=== PATIENT | female | born 1955 | race Caucasian/White ===

== ENCOUNTER → 2017-10-02 10:55 | Outpatient (CLI) | payer OTHER, SELFPAY ==
[2017-10-02 12:00] LABS: Add Manual Diff / Slide Review NO; Basophils Percent Auto 1.4 % (0-2); Hematocrit 39.8 % (36-46); Hemoglobin 13.3 g/dL (12.0-16.0); Mean Corpuscular HGB Conc 33.3 % (30-36); Mean Corpuscular Hemoglobin 29.5 PG (26-34); Mean Corpuscular Volume 88.5 fL (80-100); Monocytes Percent Auto 6.9 % (3-14); Neutrophils Absolute Auto 4400 /uL (3000-5900); Neutrophils Percent Auto 49.7 % (50-75); Platelet Count 328 X10^3/uL (150-400); Red Cell Distribution Width 12.7 % (11.6-14.8); White Blood Cell Count 8.8 X10^3/uL (4.5-11.0)
[2017-10-02 12:17] LABS: Hemoglobin A1C% w Est Avg Glu 6.5 % (4.0-6.0)
[2017-10-02 12:49] LABS: TSH w/ Reflex to FT4 0.72 uIU/mL (0.47-4.68)
== END ==
PROVIDERS: PCP Family Medicine; Visit Provider Family Medicine
DX: E03.9 Hypothyroidism, unspecified (principal); E11.9 Type 2 diabetes mellitus without complications; G47.00 Insomnia, unspecified
CPT/HCPCS: 36415; 83036; 84443; 85025

== ENCOUNTER 2017-12-01 12:10 | Emergency (ER) | payer OTHER, SELFPAY ==
[2017-12-01 12:15] VITALS: BP 172/83; PULSE 80; RESP 13; TEMP 36.5; O2SAT 98
--- NOTE | 2017-12-01 12:46 | ED_ITS ---
HPI - Head Injury <SONIYA Chen - Last Filed: 12/01/17 22:08> General Chief complaint: Hypertension Stated complaint: VERTIGO AND HIGH BP, FELL AND HIT HEAD Time Seen by Provider: 12/01/17 12:41 Source: patient Mode of arrival: ambulatory Limitations: no limitations History of Present Illness HPI Narrative: 62-year-old female with history of high blood pressure nonsmoker here for complaint of having a dizziness/vertigo over the past couple of days. She states that she was seen in emergency room in [facility] as she was traveling from [place] back home. They did a significant workup on her and a with no acute findings. There was discussion as far as meningitis as her dad of meningitis. Not believed to be bacterial. She refused to have a lumbar puncture. She was told to follow up with her primary care provider. She tried to see her primary care provider today and was unable to. She states that due to the dizziness she had and fall last night which she states she hit her head. She denies any loss of consciousness. No nausea or vomiting. She was prescribed meclizine and states that this has helped her dizziness. She denies any fevers or chills. Related Data Home Medications Medication Instructions Recorded Confirmed aspirin 81 mg PO QDAY #0 10/14/16 10/02/17 advair hfa INHALATION BID 09/11/17 10/02/17 Previous Rx's Medication Instructions Recorded albuterol sulfate 3 ml INH Q4H PRN #6 box 03/13/16 albuterol sulfate [Ventolin HFA] 2 puff INH Q4HP PRN #2 inh 09/16/16 esomeprazole magnesium [Nexium] 40 mg PO QDAY #90 cap 12/30/16 diclofenac sodium 1 tavo TP BID #30 gm 02/10/17 cetirizine 10 mg PO QDAY #90 tab 07/16/17 citalopram 40 mg PO Q DAY #90 tab 07/16/17 losartan 50 mg PO QDAY #90 tab 07/16/17 metformin [Glucophage XR] 750 mg PO BIDCC #180 tab 07/16/17 montelukast 10 mg tablet 10 mg PO DAILY #90 tab 09/18/17 azelastine 137 mcg (0.1 %) nasal 1 spray NASAL BID #30 ml 09/24/17 spray aerosol estradiol 1 mg tablet 1 mg PO QDAY #90 tab 10/02/17 levothyroxine 125 mcg tablet 125 mcg PO QAM #90 tab 10/02/17 medroxyprogesterone 2.5 mg tablet 2.5 mg PO QDAY #90 tab 10/02/17 diazepam 5 mg tablet 5 mg PO BEDTIME PRN #30 tab 11/06/17 zolpidem 10 mg tablet 10 mg PO BEDTIME PRN #15 tab 11/06/17 ondansetron HCl [Zofran] 4 mg PO Q6-8H PRN #10 tab 12/01/17 Allergies Allergy/AdvReac Type Severity Reaction Status Date / Time birch [BIRCH] Allergy Intermediate Verified 10/02/17 09:47 grass pollen-perennial rye, Allergy Intermediate Verified 10/02/17 09:47 standar [GRASS POLLEN-PERENNIAL RYE,STD] hazelnut [HAZELNUT] Allergy Intermediate Verified 10/02/17 09:47 oak [OAK] Allergy Intermediate Verified 10/02/17 09:47 ragweed pollen Allergy Intermediate Verified 10/02/17 09:47 [RAGWEED POLLEN] latex [LATEX] Allergy Unknown Verified 10/02/17 09:47 Sulfa (Sulfonamide AdvReac Mild NAUSEA AND Verified 10/02/17 09:47 Antibiotics) VOMITING [SULFA (SULFONAMIDE ANTIBIOTICS)] ENVIRONMENTAL ALLERGIES AdvReac Mild COUGHING, Uncoded 10/02/17 09:47 WHEEZING, DISCHARGE, ETC. Review of Systems <SONIYA Chen - Last Filed: 12/01/17 22:08> Constitutional Denies chills, Denies fever(s), Reports headache(s), Denies lethargy and Denies weakness Eyes Denies change in vision, Denies eye discharge, Denies irritation and Denies loss of vision ENT Ears, Nose, Mouth, and Throat: Reports dizziness and Reports headache(s) Cardiovascular Denies chest pain, Denies irregular heart rhythm, Denies lightheadedness, Denies palpitations, Denies dyspnea, Denies dyspnea on exertion and Denies orthopnea Respiratory Denies cough, Denies dyspnea, Denies dyspnea on exertion and Denies wheezing Gastrointestinal Gastrointestinal: Denies abdominal pain, Denies change in bowel habits, Denies diarrhea, Denies nausea and Denies vomiting Genitourinary Denies hematuria, Denies flank pain, Denies urinary incontinence and Denies urinary urgency Musculoskeletal Denies back pain, Denies muscle weakness, Denies numbness and Denies tingling Integumentary/Breasts Denies pruritus, Denies erythema, Denies rash and Denies wounds Neurologic Denies confusion, Reports dizziness, Reports headache(s), Denies loss of vision , Denies numbness, Denies tingling and Denies weakness Psychiatric Denies anxiety, Denies confusion, Denies depression, Denies homicidal ideation and Denies suicidal ideation Endocrine Denies palpitations Allergic/Immunologic Denies wheezing Exam <SONIYA Chen - Last Filed: 12/01/17 22:08> Initial Vital Signs Initial Vital Signs: Vital Signs Temperature 97.7 F 12/01/17 12:15 Pulse Rate 80 12/01/17 12:15 Respiratory Rate 13 12/01/17 12:15 Blood Pressure 172/83 H 12/01/17 12:15 Pulse Oximetry 98 12/01/17 12:15 Const General: cooperative and well developed Nutritional Appearance: well nourished Orientation: alert, awake, oriented x3 and not confused HENHI Mouth: oral mucosae normal and moist mucous membranes Eyes Conjunctivae: conjunctivae normal Sclera: sclerae normal Pupils: PERRL EOM: EOM intact bilaterally Resp Effort & Inspection: normal respiratory effort, able to speak in complete sentences, no respiratory distress and no use of accessory muscles Auscultation: clear to auscultation bilaterally, no rales, no rhonchi and no wheezes Cardio Rate: regular rate Rhythm: regular rhythm Heart Sounds: no click, no gallops, no murmurs and no rubs Pulses: normal peripheral pulses Skin General: no rashes or lesions noted, No jaundice and No petechiae Neuro General: alert, awake, oriented x3, gait normal, moves all extremities, normal light touch, pain and propioception, no focal motor deficits and CN's II-XI intact bilaterally Speech: speech normal Gait: normal gait Motor: muscle tone normal throughout Sensory Exam: no sensory deficits noted Extrem General: full ROM, no clubbing, cyanosis or edema, no pedal edema and no calf tenderness Other: Right upper extremity with no signs of trauma. No ecchymosis. No swelling. Full range of motion. Distal CMS is intact. <Joanne Dooley DO - Last Filed: 12/02/17 11:23> Initial Vital Signs Initial Vital Signs: Vital Signs Temperature 97.7 F 12/01/17 12:15 Pulse Rate 80 12/01/17 12:15 Respiratory Rate 13 12/01/17 12:15 Blood Pressure 172/83 H 12/01/17 12:15 Pulse Oximetry 98 12/01/17 12:15 Scores <SONIYA Chen - Last Filed: 12/01/17 22:08> ABCD2 Age >= 60 years: yes Initial BP. Either SBP >= 140 or DBP >= 90.: yes Clinical features of the TIA: other symptoms Duration of symptoms: >= 60 minutes History of diabetes: yes ABCD2 Score: 5 Course <SONIYA Chen - Last Filed: 12/01/17 22:08> Orders Ordered: Discontinued Medications Sodium Chloride (Normal Saline 0.9%) 1,000 mls @ 150 mls/hr IV CONT EVAN Last Infusion: 12/01/17 17:58 Dose: 0 mls/hr Admin: 12/01/17 13:44 Dose: 150 mls/hr Lorazepam (Ativan) 0.5 mg IV NOW ONE Stop: 12/01/17 15:30 Last Admin: 12/01/17 15:39 Dose: Not Given Lorazepam (Ativan) 1 mg IV NOW ONE Stop: 12/01/17 15:32 Last Admin: 12/01/17 15:38 Dose: 1 mg Vital Signs - 8 hr 12/01/17 14:41 12/01/17 15:24 12/01/17 17:48 Pulse Rate 71 68 70 Pulse Rate [Orthostatic Lying] 71 Pulse Rate [Orthostatic Sitting] 65 Pulse Rate [Orthostatic Standing] 73 Respiratory Rate 16 16 16 Blood Pressure [Left Arm] 176/85 H 175/97 H 158/93 H Blood Pressure [Orthostatic Lying] 176/85 H Blood Pressure [Orthostatic Sitting] 171/84 H Blood Pressure [Orthostatic Standing] 169/89 H Pulse Oximetry 96 98 97 <Joanne Dooley DO - Last Filed: 12/02/17 11:23> Orders Ordered: Discontinued Medications Sodium Chloride (Normal Saline 0.9%) 1,000 mls @ 150 mls/hr IV CONT EVAN Last Infusion: 12/01/17 17:58 Dose: 0 mls/hr Admin: 12/01/17 13:44 Dose: 150 mls/hr Lorazepam (Ativan) 0.5 mg IV NOW ONE Stop: 12/01/17 15:30 Last Admin: 12/01/17 15:39 Dose: Not Given Lorazepam (Ativan) 1 mg IV NOW ONE Stop: 12/01/17 15:32 Last Admin: 12/01/17 15:38 Dose: 1 mg Vital Signs - 8 hr 12/01/17 14:41 12/01/17 15:24 12/01/17 17:48 Pulse Rate 71 68 70 Pulse Rate [Orthostatic Lying] 71 Pulse Rate [Orthostatic Sitting] 65 Pulse Rate [Orthostatic Standing] 73 Respiratory Rate 16 16 16 Blood Pressure [Left Arm] 176/85 H 175/97 H 158/93 H Blood Pressure [Orthostatic Lying] 176/85 H Blood Pressure [Orthostatic Sitting] 171/84 H Blood Pressure [Orthostatic Standing] 169/89 H Pulse Oximetry 96 98 97 MDM - Head Injury <SONIYA Chen - Last Filed: 12/01/17 22:08> Lab Data Result diagrams: 12/01/17 13:30 12/01/17 13:30 Lab Results 12/01/17 12/01/17 12/01/17 Range/Units 13:30 13:30 13:30 WBC 9.4 (4.5-11.0) X10^3/uL RBC 4.42 (4.0-5.2) X10^6/uL Hgb 12.9 (12.0-16.0) g/dL Hct 38.3 (36-46) % MCV 86.7 (80-100) fL MCH 29.3 (26-34) PG MCHC 33.8 (30-36) % RDW 12.7 (11.6-14.8) % Plt Count 317 (150-400) X10^3/uL Neut % (Auto) 50.6 (50-75) % Lymph % (Auto) 38.1 (25-40) % Gillespie % (Auto) 6.1 (3-14) % Eos % (Auto) 3.8 (2-4) % Baso % (Auto) 1.4 (0-2) % Neut # (Auto) 4700 (2802-1895) /uL PT 12.5 (10.1-12.7) SECONDS INR 1.2 (0.9-1.3) Sodium 144 (137-145) mmol/L Potassium 4.2 (3.4-5.1) mmol/L Chloride 106 (98-107) mmol/L Carbon Dioxide 26 (22-32) mmol/L BUN 11 (7-17) mg/dL Creatinine 0.70 (0.52-1.04) mg/dL Estimated GFR > 60.0 (>60) mL/min BUN/Creatinine Ratio 15.7 (6-22) Glucose 94 (80-110) mg/dL Lactate (0.7-2.1) mmol/L Calcium 10.0 (8.4-10.2) mg/dL Troponin I < 0.012 (0.01-0.034) ng/mL TSH (0.47-4.68) uIU/mL Urine Opiates Screen (Negative) Ur Oxycodone Screen (Negative) Urine Methadone Screen (Negative) Ur Barbiturates Screen (Negative) U Tricyclic Antidepress (Negative) Ur Phencyclidine Scrn (Negative) Ur Amphetamines Screen (Negative) U Methamphetamines Scrn (Negative) Ur MDMA Scrn (Ecstasy) (Negative) U Benzodiazepines Scrn (Negative) Urine Cocaine Screen (Negative) U Marijuana (THC) Screen (Negative) 12/01/17 12/01/17 12/01/17 Range/Units 13:30 13:47 Unknown WBC (4.5-11.0) X10^3/uL RBC (4.0-5.2) X10^6/uL Hgb (12.0-16.0) g/dL Hct (36-46) % MCV (80-100) fL MCH (26-34) PG MCHC (30-36) % RDW (11.6-14.8) % Plt Count (150-400) X10^3/uL Neut % (Auto) (50-75) % Lymph % (Auto) (25-40) % Gillespie % (Auto) (3-14) % Eos % (Auto) (2-4) % Baso % (Auto) (0-2) % Neut # (Auto) (7412-5794) /uL PT (10.1-12.7) SECONDS INR (0.9-1.3) Sodium (137-145) mmol/L Potassium (3.4-5.1) mmol/L Chloride (98-107) mmol/L Carbon Dioxide (22-32) mmol/L BUN (7-17) mg/dL Creatinine (0.52-1.04) mg/dL Estimated GFR (>60) mL/min BUN/Creatinine Ratio (6-22) Glucose (80-110) mg/dL Lactate 2.4 H (0.7-2.1) mmol/L Calcium (8.4-10.2) mg/dL Troponin I (0.01-0.034) ng/mL TSH 2.70 (0.47-4.68) uIU/mL Urine Opiates Screen Negative (Negative) Ur Oxycodone Screen Negative (Negative) Urine Methadone Screen Negative (Negative) Ur Barbiturates Screen Negative (Negative) U Tricyclic Antidepress Negative (Negative) Ur Phencyclidine Scrn Negative (Negative) Ur Amphetamines Screen Negative (Negative) U Methamphetamines Scrn Negative (Negative) Ur MDMA Scrn (Ecstasy) Negative (Negative) U Benzodiazepines Scrn Positive H (Negative) Urine Cocaine Screen Negative (Negative) U Marijuana (THC) Screen Negative (Negative) Imaging Data MRI - head: Radiologist's impression: [place] [address] Magnetic Resonance Report Signed Patient: Kenya Handy MR#: [id number] : 1955 Acct:[id number] Age/Sex: 62 / F Date of Service: 12/01/17 Loc: ED Accession Number: [id number] Procedure: MR head/brain wo con Ordering Provider: Price Joyce PROCEDURE: MR HEAD/BRAIN WO CON INDICATIONS: Headache and dizziness TECHNIQUE: Non-contrast axial T1 spin echo, axial T2 fast spin echo, sagittal and axial FLAIR, coronal T2 fast spin echo, axial gradient echo, axial diffusion and ADC through the brain. COMPARISON: [facility], CT, CT HEAD/BRAIN WO CON, 12/01/2017, 13:23. FINDINGS: Image quality: Excellent. CSF spaces: Ventricles appear symmetric in size and shape. Basal cisterns are patent. No extra-axial fluid collections. Brain: No intracranial bleeds or mass effects. There is cerebral volume loss for age. There are periventricular and deep white matter chronic small vessel ischemic changes. Brainstem appears normal. Diffusion-weighted images show no acute ischemic insults. No chronic ischemic insults. Normal intravascular flow voids are present. Skull and face: Calvarial bone marrow is normal in signal. Orbits are normal. Sinuses: Sinuses and mastoids are clear. Bilateral raine bullosa and moderate rightward nasal septal deviation are incidentally noted. IMPRESSION: Unremarkable intracranial study for age. No findings of acute or subacute infarction can be seen. Dictated by: Camilo Easton M.D. on 12/01/2017 at 15:48 Approved by: Camilo Easton M.D. on 12/01/2017 at 15:49 CT scan - head: Radiologist's impression: PROCEDURE: CT HEAD/BRAIN WO CON INDICATIONS: Headache and dizziness with ground level fall hitting head TECHNIQUE: Noncontrast 4.5 mm thick angled axial sections acquired from the foramen magnum to the vertex, with coronal and sagittal reformats. For radiation dose reduction, the following was used: automated exposure control, adjustment of mA and/or kV according to patient size. COMPARISON: None. FINDINGS: Image quality: Excellent. CSF spaces: Basal cisterns are patent. No extra-axial fluid collections. Ventricles are normal in size and shape. Brain: No midline shift. No intracranial masses or hemorrhage. Westfall-white matter interface is normal. Skull and face: Calvarium and visualized facial bones are intact, without suspicious lesions. Sinuses: Visualized sinuses and mastoids are clear. IMPRESSION: Normal for age, source of current symptoms is not seen. Dictated by: Neto Darnell M.D. on 12/01/2017 at 13:42 Approved by: Neto Darnell M.D. on 12/01/2017 at 13:43 C-spine: Radiologist's impression: PROCEDURE: CT CERVICAL SPINE WO CON INDICATIONS: Pain into neck status post ground level fall with headache TECHNIQUE: Noncontrast 3 mm thick sections acquired from the skull base to the T4 level. Sagittal and coronal reformats were then constructed. For radiation dose reduction, the following was used: automated exposure control, adjustment of mA and/or kV according to patient size. COMPARISON: None. FINDINGS: Image quality: Excellent. Bones: No fractures or dislocations. Visualized superior ribs are intact. C4- 5 degenerative disc disease is moderate, with potential for nerve root impingement but no subluxation is associated Soft tissues: Prevertebral soft tissues are normal in thickness. No paravertebral hematomas. No apical pneumothoraces. IMPRESSION: Moderate C4-5 degenerative disc disease, no fracture or traumatic subluxation is seen. Dictated by: Neto Darnell M.D. on 12/01/2017 at 13:52 Approved by: Neto Darnell M.D. on 12/01/2017 at 14:02 Humerus : Radiologist's impression: [place] [address] XRay Report Signed Patient: Kenya Handy MR#: [id number] : 1955 Acct:[id number] Age/Sex: 62 / F Date of Service: 12/01/17 Loc: Accession Number: [id number] Procedure: XR humerus RT 2V Ordering Provider: Price Joyce PROCEDURE: XR HUMERUS RT 2V INDICATIONS: Pain into right upper arm status post ground level fall TECHNIQUE: 2 views of the humerus were acquired. COMPARISON: None. FINDINGS: Bones: No fractures or dislocations. No suspicious bony lesions. Soft tissues: No suspicious soft tissue calcifications. IMPRESSION: No acute fracture or dislocation of the right humerus. Dictated by: Dayday Almendarez M.D. on 12/01/2017 at 13:49 Approved by: Dayday Almendarez M.D. on 12/01/2017 at 14:01 ECG Data Interpretation: EKG shows normal sinus bradycardia with no ST elevation or depression. No ectopy. Right bundle branch block is seen. Ventricular rate of is 58. P are 0155. QRS duration 137. QT of 473. MDM Narrative Medical decision making narrative: Chest x-ray was obtained yesterday and was negative. Repeat CT of the head was obtained today due to fall and also to neck as she states she has pain into her neck these were negative for any acute findings. X-ray the right humerus was obtained due to pain into the right upper arm after a fall and was negative for any acute finding. Brain MRI was obtained to look further and was negative for any acute findings. CBC was obtained and was unremarkable. INR was unremarkable. Chemistry panel was obtained and was unremarkable. Troponin was negative. Lactate was 2.4 which is down from yesterday which was 4. Will have patient try modified Lion maneuvers at home to see if it helps her symptoms. Will have her continue taking her meclizine as directed. [id number]-[id number] ibuprofen as needed for discomfort. She will see her primary care provider in the next couple days for re-evaluation. Return emergency room for any worsening symptoms. <Joanne Dooley, DO - Last Filed: 12/02/17 11:23> Lab Data Lab Results 12/01/17 12/01/17 12/01/17 Range/Units 13:30 13:30 13:30 WBC 9.4 (4.5-11.0) X10^3/uL RBC 4.42 (4.0-5.2) X10^6/uL Hgb 12.9 (12.0-16.0) g/dL Hct 38.3 (36-46) % MCV 86.7 (80-100) fL MCH 29.3 (26-34) PG MCHC 33.8 (30-36) % RDW 12.7 (11.6-14.8) % Plt Count 317 (150-400) X10^3/uL Neut % (Auto) 50.6 (50-75) % Lymph % (Auto) 38.1 (25-40) % Gillespie % (Auto) 6.1 (3-14) % Eos % (Auto) 3.8 (2-4) % Baso % (Auto) 1.4 (0-2) % Neut # (Auto) 4700 (5590-8732) /uL PT 12.5 (10.1-12.7) SECONDS INR 1.2 (0.9-1.3) Sodium 144 (137-145) mmol/L Potassium 4.2 (3.4-5.1) mmol/L Chloride 106 (98-107) mmol/L Carbon Dioxide 26 (22-32) mmol/L BUN 11 (7-17) mg/dL Creatinine 0.70 (0.52-1.04) mg/dL Estimated GFR > 60.0 (>60) mL/min BUN/Creatinine Ratio 15.7 (6-22) Glucose 94 (80-110) mg/dL Lactate (0.7-2.1) mmol/L Calcium 10.0 (8.4-10.2) mg/dL Troponin I < 0.012 (0.01-0.034) ng/mL TSH (0.47-4.68) uIU/mL Urine Opiates Screen (Negative) Ur Oxycodone Screen (Negative) Urine Methadone Screen (Negative) Ur Barbiturates Screen (Negative) U Tricyclic Antidepress (Negative) Ur Phencyclidine Scrn (Negative) Ur Amphetamines Screen (Negative) U Methamphetamines Scrn (Negative) Ur MDMA Scrn (Ecstasy) (Negative) U Benzodiazepines Scrn (Negative) Urine Cocaine Screen (Negative) U Marijuana (THC) Screen (Negative) 12/01/17 12/01/17 12/01/17 Range/Units 13:30 13:47 Unknown WBC (4.5-11.0) X10^3/uL RBC (4.0-5.2) X10^6/uL Hgb (12.0-16.0) g/dL Hct (36-46) % MCV (80-100) fL MCH (26-34) PG MCHC (30-36) % RDW (11.6-14.8) % Plt Count (150-400) X10^3/uL Neut % (Auto) (50-75) % Lymph % (Auto) (25-40) % Gillespie % (Auto) (3-14) % Eos % (Auto) (2-4) % Baso % (Auto) (0-2) % Neut # (Auto) (5215-7656) /uL PT (10.1-12.7) SECONDS INR (0.9-1.3) Sodium (137-145) mmol/L Potassium (3.4-5.1) mmol/L Chloride (98-107) mmol/L Carbon Dioxide (22-32) mmol/L BUN (7-17) mg/dL Creatinine (0.52-1.04) mg/dL Estimated GFR (>60) mL/min BUN/Creatinine Ratio (6-22) Glucose (80-110) mg/dL Lactate 2.4 H (0.7-2.1) mmol/L Calcium (8.4-10.2) mg/dL Troponin I (0.01-0.034) ng/mL TSH 2.70 (0.47-4.68) uIU/mL Urine Opiates Screen Negative (Negative) Ur Oxycodone Screen Negative (Negative) Urine Methadone Screen Negative (Negative) Ur Barbiturates Screen Negative (Negative) U Tricyclic Antidepress Negative (Negative) Ur Phencyclidine Scrn Negative (Negative) Ur Amphetamines Screen Negative (Negative) U Methamphetamines Scrn Negative (Negative) Ur MDMA Scrn (Ecstasy) Negative (Negative) U Benzodiazepines Scrn Positive H (Negative) Urine Cocaine Screen Negative (Negative) U Marijuana (THC) Screen Negative (Negative) Discharge Plan Departure Patient Disposition: Home Clinical Impression: Dizziness, Hypertension Discharge Date/Time: 12/01/17 18:05 Interventions: ED Discharge Assessment Last Done: 12/01/17 17:59 Instructions: DI for High Blood Pressure, DI for Dizziness-Nonvertigo Activity Restrictions/Additional Instructions: Laboratory results and imaging today were unremarkable. Continue to take meclizine as prescribed treat the dizziness. Perform modified Lion maneuvers as shown on pronounced to see if it helps her symptoms. Monitor your blood pressure and results and bring them to your primary care provider in the next couple days for re-evaluation. For any worsening symptoms return to the emergency room. Taking medications as prescribed. Prescriptions: New ondansetron HCl [Zofran] 4 mg tablet 4 mg PO Q6-8H PRN (Reason: nausea and vomiting) Qty: 10 RF: 0 No Action albuterol sulfate 2.5 MG/3 ML solution for nebulization 3 ml INH Q4H PRN Qty: 6 RF: 3 albuterol sulfate [Ventolin HFA] 90 MCG/PUFF HFA aerosol inhaler 2 puff INH Q4HP PRNQty: 2 RF: 5 aspirin 81 MG tablet,delayed release (DR/EC) 81 mg PO QDAY Qty: 0 RF: 0 esomeprazole magnesium [Nexium] 40 MG capsule,delayed release(DR/EC) 40 mg PO QDAY Qty: 90 RF: 3 diclofenac sodium 3 % gel 1 tavo TP BID Qty: 30 RF: 0 losartan 50 MG tablet 50 mg PO QDAY Qty: 90 RF: 3 citalopram 40 MG tablet 40 mg PO Q DAY Qty: 90 RF: 1 cetirizine 10 MG tablet 10 mg PO QDAY Qty: 90 RF: 3 metformin [Glucophage XR] 750 MG tablet extended release 24 hr 750 mg PO BIDCC Qty: 180 RF: 3 advair hfa aerosol INHALATION BID RF: 0 montelukast 10 mg tablet 10 mg PO DAILY Qty: 90 RF: 3 azelastine 137 mcg (0.1 %) aerosol,spray 1 spray NASAL BID Qty: 30 RF: 6 diazepam 5 mg tablet 5 mg PO BEDTIME PRN (Reason: sleep) Qty: 30 RF: 0 zolpidem [Ambien] 10 mg tablet 10 mg PO BEDTIME PRN (Reason: sleep) Qty: 15 RF: 0 medroxyprogesterone 2.5 mg tablet 2.5 mg PO QDAY Qty: 90 RF: 3 levothyroxine [Synthroid] 125 mcg tablet 125 mcg PO QAM Qty: 90 RF: 3 estradiol [Estrace] 1 mg tablet 1 mg PO QDAY Qty: 90 RF: 3 Referrals: Marie Prince DO [Primary Care Provider] - <Joanne Dooley DO - Last Filed: 12/02/17 11:23> Cosign ED Attending Martínez Attestation: I was immediately available in the department for consultation. Documentation has been reviewed. I agree with assessment and plan.
--- NOTE | 2017-12-01 13:24 | DI.RAD.S_ITS ---
PROCEDURE: XR HUMERUS RT 2V INDICATIONS: Pain into right upper arm status post ground level fall TECHNIQUE: 2 views of the humerus were acquired. COMPARISON: None. FINDINGS: Bones: No fractures or dislocations. No suspicious bony lesions. Soft tissues: No suspicious soft tissue calcifications. IMPRESSION: No acute fracture or dislocation of the right humerus. Dictated by: Dayday Almendarez M.D. on 12/01/2017 at 13:49 Approved by: Dayday Almendarez M.D. on 12/01/2017 at 14:01
--- NOTE | 2017-12-01 13:29 | DI.CT.S_ITS ---
PROCEDURE: CT CERVICAL SPINE WO CON INDICATIONS: Pain into neck status post ground level fall with headache TECHNIQUE: Noncontrast 3 mm thick sections acquired from the skull base to the T4 level. Sagittal and coronal reformats were then constructed. For radiation dose reduction, the following was used: automated exposure control, adjustment of mA and/or kV according to patient size. COMPARISON: None. FINDINGS: Image quality: Excellent. Bones: No fractures or dislocations. Visualized superior ribs are intact. C4-5 degenerative disc disease is moderate, with potential for nerve root impingement but no subluxation is associated Soft tissues: Prevertebral soft tissues are normal in thickness. No paravertebral hematomas. No apical pneumothoraces. IMPRESSION: Moderate C4-5 degenerative disc disease, no fracture or traumatic subluxation is seen. Dictated by: Neto Darnell M.D. on 12/01/2017 at 13:52 Approved by: Neto Darnell M.D. on 12/01/2017 at 14:02
--- NOTE | 2017-12-01 13:29 | DI.CT.S_ITS ---
PROCEDURE: CT HEAD/BRAIN WO CON INDICATIONS: Headache and dizziness with ground level fall hitting head TECHNIQUE: Noncontrast 4.5 mm thick angled axial sections acquired from the foramen magnum to the vertex, with coronal and sagittal reformats. For radiation dose reduction, the following was used: automated exposure control, adjustment of mA and/or kV according to patient size. COMPARISON: None. FINDINGS: Image quality: Excellent. CSF spaces: Basal cisterns are patent. No extra-axial fluid collections. Ventricles are normal in size and shape. Brain: No midline shift. No intracranial masses or hemorrhage. Westfall-white matter interface is normal. Skull and face: Calvarium and visualized facial bones are intact, without suspicious lesions. Sinuses: Visualized sinuses and mastoids are clear. IMPRESSION: Normal for age, source of current symptoms is not seen. Dictated by: Neto Darnell M.D. on 12/01/2017 at 13:42 Approved by: Neto Darnell M.D. on 12/01/2017 at 13:43
[2017-12-01 13:40] LABS: Add Manual Diff / Slide Review NO; Basophils Percent Auto 1.4 % (0-2); Eosinophils Percent Auto 3.8 % (2-4); Hematocrit 38.3 % (36-46); Hemoglobin 12.9 g/dL (12.0-16.0); Lymphocytes Percent Auto 38.1 % (25-40); Mean Corpuscular HGB Conc 33.8 % (30-36); Mean Corpuscular Hemoglobin 29.3 PG (26-34); Mean Corpuscular Volume 86.7 fL (80-100); Monocytes Percent Auto 6.1 % (3-14); Neutrophils Absolute Auto 4700 /uL (3000-5900); Neutrophils Percent Auto 50.6 % (50-75); Platelet Count 317 X10^3/uL (150-400); Red Blood Cell Count 4.42 X10^6/uL (4.0-5.2); Red Cell Distribution Width 12.7 % (11.6-14.8); White Blood Cell Count 9.4 X10^3/uL (4.5-11.0)
[2017-12-01] MEDS: SODIUM CHLORIDE 0.9% 1,000 ML 150 ML IV (13:44)
[2017-12-01 13:53] LABS: INR 1.2 (0.9-1.3); Prothrombin Time 12.5 SECONDS (10.1-12.7)
[2017-12-01 14:01] LABS: BUN Creatinine Ratio 15.7 (6-22); Blood Urea Nitrogen 11 mg/dL (7-17); Carbon Dioxide 26 mmol/L (22-32); Chloride 106 mmol/L (98-107); Estimated Glomerular Filt Rate > 60.0 mL/min (>60); Glucose 94 mg/dL (80-110); HEMOLYSIS 18 (0-50); Potassium 4.2 mmol/L (3.4-5.1); Sodium 144 mmol/L (137-145)
[2017-12-01 14:09] LABS: Lactate (Lactic Acid) 2.4 mmol/L (0.7-2.1)
[2017-12-01 14:17] LABS: Troponin I < 0.012 ng/mL (0.01-0.034)
[2017-12-01 14:41] VITALS: BP 169/89; BP 171/84; BP 176/85; PULSE 65; PULSE 71; PULSE 73; RESP 16; O2SAT 96
--- NOTE | 2017-12-01 14:46 | DI.MRI.S_ITS ---
PROCEDURE: MR HEAD/BRAIN WO CON INDICATIONS: Headache and dizziness TECHNIQUE: Non-contrast axial T1 spin echo, axial T2 fast spin echo, sagittal and axial FLAIR, coronal T2 fast spin echo, axial gradient echo, axial diffusion and ADC through the brain. COMPARISON: [facility], CT, CT HEAD/BRAIN WO CON, 12/01/2017, 13:23. FINDINGS: Image quality: Excellent. CSF spaces: Ventricles appear symmetric in size and shape. Basal cisterns are patent. No extra-axial fluid collections. Brain: No intracranial bleeds or mass effects. There is cerebral volume loss for age. There are periventricular and deep white matter chronic small vessel ischemic changes. Brainstem appears normal. Diffusion-weighted images show no acute ischemic insults. No chronic ischemic insults. Normal intravascular flow voids are present. Skull and face: Calvarial bone marrow is normal in signal. Orbits are normal. Sinuses: Sinuses and mastoids are clear. Bilateral raine bullosa and moderate rightward nasal septal deviation are incidentally noted. IMPRESSION: Unremarkable intracranial study for age. No findings of acute or subacute infarction can be seen. Dictated by: Camilo Easton M.D. on 12/01/2017 at 15:48 Approved by: Camilo Easton M.D. on 12/01/2017 at 15:49
[2017-12-01 15:04] LABS: Urine Amphetamines Negative (Negative); Urine Barbiturates Negative (Negative); Urine Benzodiazepines Positive (Negative); Urine Cocaine Negative (Negative); Urine MDMA Negative (Negative); Urine Methadone Negative (Negative); Urine Methamphetamines Negative (Negative); Urine Morphine/Opi cutoff 2000 Negative (Negative); Urine Oxycodone Negative (Negative); Urine Phencyclidine Negative (Negative); Urine Tetrahydrocannabinol Negative (Negative); Urine Tricyclic Antidepressant Negative (Negative)
[2017-12-01 15:24] VITALS: BP 175/97; PULSE 68; RESP 16; O2SAT 98
[2017-12-01] MEDS: LORazepam 2 MG/ML SYRINGE 1 MG IV (15:38)
[2017-12-01 17:48] VITALS: BP 158/93; PULSE 70; RESP 16; O2SAT 97
[2017-12-01 17:49] LABS: Reflexed Lactate in 2 Hours Y
== END 2017-12-01 18:05 | disposition home or self-care (01) ==
PROVIDERS: Emergency Provider Nurse Practitioner Family; Family Provider Family Medicine; PCP Family Medicine
DX: R42 Dizziness and giddiness (principal); I10 Essential (primary) hypertension
CPT/HCPCS: 36591; 70450; 70551; 72125; 73060; 80048; 80305; 81003; 83605; 84443; 84484; 85025; 85610; 93005; 93010; 96361; 96374; 99283; 99285; J2060

== ENCOUNTER → 2018-06-04 07:24 | Outpatient (CLI) | payer OTHER, SELFPAY ==
[2018-06-04 08:40] LABS: Hemoglobin A1C% w Est Avg Glu 6.8 % (4.0-6.0)
[2018-06-04 08:49] LABS: BUN Creatinine Ratio 18.8 (6-22); Blood Urea Nitrogen 15 mg/dL (7-17); Calcium 9.9 mg/dL (8.4-10.2); Carbon Dioxide 24 mmol/L (22-32); Chloride 99 mmol/L (98-107); Estimated Glomerular Filt Rate > 60.0 mL/min (>60); Glucose 247 mg/dL (80-110); HEMOLYSIS < 15 (0-50); Sodium 137 mmol/L (137-145)
== END ==
PROVIDERS: PCP Family Medicine; Visit Provider Family Medicine
DX: E11.9 Type 2 diabetes mellitus without complications (principal); I10 Essential (primary) hypertension
CPT/HCPCS: 36415; 80048; 83036

== ENCOUNTER → 2018-07-07 10:20 | Outpatient (CLI) | payer OTHER, SELFPAY ==
--- NOTE | 2018-07-07 10:22 | DI.RAD.S_ITS ---
PROCEDURE: FL BARIUM SWALLOW INDICATIONS: Possbile Aspiration COMPARISON: [facility], CR, XR CHEST 2VW, 06/12/2015, 12:16. [facility], MR, MR HEAD/BRAIN WO CON, 12/01/2017, 15:59. FINDINGS: Function: There is mild esophageal peristalsis. No elicited gastroesophageal reflux. There is normal transit of a calibrated barium tablet through the esophagus into the stomach. Morphology: Air-contrast images demonstrate normal mucosal morphology. Single contrast views show no esophageal strictures, extrinsic mass effects, or diverticula. Limited images of the stomach demonstrate normal appearance. IMPRESSION: 1. Mild esophageal dysmotility. Dictated by: Eric Pfeiffer M.D. on 07/07/2018 at 11:16 Approved by: Eric Pfeiffer M.D. on 07/07/2018 at 11:18
== END ==
PROVIDERS: PCP Family Medicine; Visit Provider Family Medicine
DX: T17.908A Unspecified foreign body in respiratory tract, part unspecified causing other injury, initial encounter (principal); K22.4 Dyskinesia of esophagus
CPT/HCPCS: 74220

== ENCOUNTER → 2018-07-08 16:38 | Outpatient (CLI) | payer OTHER, SELFPAY ==
--- NOTE | 2018-07-08 16:43 | DI.RAD.S_ITS ---
PROCEDURE: XR ANKLE LT MIN 3V INDICATIONS: pain medial malleolus, pain compression of tib/fib TECHNIQUE: 3 views of the ankle were acquired. COMPARISON: None. FINDINGS: Bones: No fractures or dislocations. Ankle mortise is normally aligned. No suspicious bony lesions. Soft tissues: There is mild periarticular soft tissue swelling. There is a small tibiotalar joint effusion. Achilles tendon appears normal. IMPRESSION: 1. No fracture or dislocation. Dictated by: Vito Bird M.D. on 07/08/2018 at 17:17 Approved by: Vito Bird M.D. on 07/08/2018 at 17:18
== END ==
PROVIDERS: Family Provider Family Medicine; PCP Family Medicine; Visit Provider Family Medicine
DX: S93.432A Sprain of tibiofibular ligament of left ankle, initial encounter (principal)
CPT/HCPCS: 73610

== ENCOUNTER → 2018-07-09 10:59 | Outpatient (CLI) | payer OTHER, SELFPAY ==
--- NOTE | 2018-07-17 16:37 | PM.PFT.1 ---
Pulmonary Function Test Referral & Results Date Patient Seen: 07/10/18 Requesting provider: Marie Prince Indication: Asthma Results: The spirometry demonstrates an FVC of 2.77 L which is 81% of predicted. The FEV1 was measured at 2.10 L which is 80% of predicted. The FEV1/FVC ratio was 76 which is 97% of predicted. Following the administration of bronchodilator there was no appreciable change. Lung volumes show an SVC of 2.08 L which is 66% of predicted. The diffusing capacity was measured at 19.27 which is 75% of predicted. No hemoglobin value was provided, so no correction for potential anemia could be made, if appropriate. The maximum voluntary ventilation was reduced slightly Interpretation: This study demonstrates mild obstructive lung disease based on slight reduction in FEV1 without evidence of benefit following bronchodilator There is more significant reduction in lung volumes suggesting more moderate restrictive lung disease There is also mild reduction in diffusing capacity suggesting some element of disease at the capillary alveolar level, unless patient is anemic Clinical correlation suggested
== END ==
PROVIDERS: Family Provider Family Medicine; PCP Family Medicine; Visit Provider Family Medicine
DX: J45.909 Unspecified asthma, uncomplicated (principal)
CPT/HCPCS: 94060; 94726; 94729

== ENCOUNTER → 2018-11-19 10:23 | Outpatient (CLI) | payer OTHER, SELFPAY ==
--- NOTE | 2018-11-19 14:44 | PM.TREADMILL ---
Cardiac Stress Test Report Referral & Results Date Patient Seen: 11/19/18 Requesting provider: Marie Prince Indication: Right bundle branch block Rest ECG: Right bundle branch block Procedure Note: After both written and verbal informed consent the patient had an IV started by the diagnostic imaging RN and then was hooked up to the treadmill monitoring system. The patient was placed on the treadmill at 1 mile an hour with no elevation and was then injected with the Laureen scan material. The Cardiolite was then immediately administered. The patient spent an additional 2-3 minutes on the treadmill before being returned to the [facility] in the supine position. The patient had a normal response to all infused materials. Impression: Please see perfusion imaging for details regarding possible ischemia Please note: Actual ECG tracings can be found in the PACS system.
--- NOTE | 2018-11-19 17:33 | DI.NM.S_ITS ---
DATE OF SERVICE: 11/19/2018 PROCEDURE PERFORMED: Pharmacologic vasodilator stress and rest myocardial perfusion imaging with gating to assess ejection fraction and regional wall motion performed has a 1-day protocol. ORDERING PROVIDER: Dr. Marie Prince. INDICATIONS: The patient is a 63-year-old female with exertional dyspnea and falls. CARDIAC STRESS: Per protocol, 0.4 mg of regadenoson was infused with a normal hemodynamic response. She had no chest discomfort. Her resting ECG shows a right bundle-branch block with right axis deviation suggesting possible underlying pulmonary disease. There are no significant ST-segment shifts with stress. There were no arrhythmias. Per protocol, 26.8 mCi of technetium-99 Myoview was injected, and the patient was imaged 15 minutes later using a gated SPECT protocol. The patient had previously been injected with 13.4 mCi of technetium-99 Myoview and imaged 30 minutes following that injection using a similar protocol. FINDINGS: 1. Raw Data: There is fair myocardial tracer uptake with prominent breast shadows which clearly produce some attenuation artifact. The lung/heart ratio is normal at 0.40 with a normal TID ratio of 0.83. 2. Quantitative Gated SPECT: Post stress ejection fraction is estimated at 96%, although it is likely an overestimate because of relatively small left ventricular volumes. There were no focal wall motion abnormalities. Resting ejection fraction is estimated at 83% with a resting end-diastolic volume of 70 mL. 3. Myocardial Perfusion Imaging: Post stress supine images show a fairly normal myocardial perfusion pattern with a subtle mid-anterior and apical defect consistent with breast attenuation artifact, supported by its complete resolution on the prone position. There are no other perfusion defects. The resting images show an identical perfusion pattern without any areas of improvement. IMPRESSION: 1. Normal myocardial perfusion study. 2. No evidence for myocardial ischemia or previous myocardial infarction. There is mild breast attenuation artifact. 3. High- normal left ventricular systolic function without any focal wall motion abnormality. 4. No angina or ECG evidence of ischemia with pharmacologic stress. OleKenya vásquez - SORIN/tian/ doc#: [id number]/job#: [id number] dd: 11/19/2018 16:32:00 dt: 11/19/2018 17:21:00 DICTATING MD/COPIES TO: Red Mondragon MD; Marie Prince, DO COPIES MNE: JB PARSONS
== END ==
PROVIDERS: Family Provider Family Medicine; PCP Family Medicine; Visit Provider Family Medicine
DX: R06.09 Other forms of dyspnea (principal); I45.10 Unspecified right bundle-branch block
CPT/HCPCS: 78452; 93016; 93017; 93018; A9502; J2785

== ENCOUNTER → 2018-12-03 14:08 | Outpatient (CLI) | payer OTHER, SELFPAY ==
[2018-12-03 14:16] LABS: Bacteria Urine None Seen; RBC Urine None Seen (0-5/HPF); WBC Urine None Seen (0-5/HPF)
[2018-12-03 14:37] LABS: Appearance Urine UA CLEAR; Bilirubin Urine UA NEGATIVE (NEGATIVE); Color Urine UA YELLOW; Glucose Urine UA NEGATIVE (Negative); Ketones Urine UA NEGATIVE (NEGATIVE); Leukocyte Esterase Urine UA NEGATIVE (NEGATIVE); Nitrite Urine UA NEGATIVE (Negative); Occult Blood Urine UA NEGATIVE (Negative); Protein Urine UA NEGATIVE (Negative); Specific Gravity Urine UA <=1.005 (1.000-1.035); Urobilinogen Urine UA 0.2 E.U./dL (0.2); pH Urine UA 6.5 (4.5-8.0)
[2018-12-03 14:51] LABS: Add Manual Diff / Slide Review NO; Basophils Absolute Auto 100 /uL (0-100); Basophils Percent Auto 1.1 % (0-2); Eosinophils Absolute Auto 500 /uL (0-450); Eosinophils Percent Auto 4.6 % (2-4); Hematocrit 38.1 % (36-46); Hemoglobin 12.5 g/dL (12.0-16.0); Lymphocytes Absolute Auto 3900 /uL (1100-4500); Lymphocytes Percent Auto 35.2 % (25-40); Mean Corpuscular HGB Conc 32.8 % (30-36); Mean Corpuscular Hemoglobin 28.9 PG (26-34); Monocytes Absolute Auto 700 /uL (0-900); Monocytes Percent Auto 6.1 % (3-14); Neutrophils Absolute Auto 5800 /uL (1500-7000); Platelet Count 350 X10^3/uL (150-400); Red Blood Cell Count 4.33 X10^6/uL (4.0-5.2); Red Cell Distribution Width 13.4 % (11.6-14.8); White Blood Cell Count 10.9 X10^3/uL (4.5-11.0)
[2018-12-03 14:56] LABS: Culture Indicated Urine Cult Not Indicated
[2018-12-03 15:24] LABS: BUN Creatinine Ratio 21.3 (6-22); Blood Urea Nitrogen 17 mg/dL (7-17); Calcium 10.5 mg/dL (8.4-10.2); Carbon Dioxide 26 mmol/L (22-32); Chloride 102 mmol/L (98-107); Estimated Glomerular Filt Rate > 60.0 mL/min (>60); Glucose 102 mg/dL (80-110); HEMOLYSIS < 15 (0-50); Potassium 5.3 mmol/L (3.4-5.1); Sodium 143 mmol/L (137-145)
== END ==
PROVIDERS: PCP Family Medicine; Visit Provider Family Medicine
DX: I77.6 Arteritis, unspecified (principal); N18.9 Chronic kidney disease, unspecified
CPT/HCPCS: 36415; 80048; 81001; 82306; 85025

== ENCOUNTER → 2019-05-04 13:20 | Outpatient (CLI) | payer OTHER, SELFPAY ==
[2019-05-04 15:10] LABS: Hemoglobin A1C% w Est Avg Glu 6.4 % (4.0-6.0)
[2019-05-04 15:22] LABS: Alanine Aminotransferase 18 IU/L (<35); Albumin 4.7 g/dL (3.5-5.0); Albumin Globulin Ratio 1.3 (1.0-2.8); Alkaline Phosphatase 64 U/L (38-126); Aspartate Aminotransferase 22 IU/L (14-36); Bilirubin Total 0.2 mg/dL (0.2-1.3); Blood Urea Nitrogen 12 mg/dL (7-17); Calcium 9.8 mg/dL (8.4-10.2); Carbon Dioxide 25 mmol/L (22-32); Chloride 100 mmol/L (98-107); Estimated Glomerular Filt Rate > 60.0 mL/min (>60); Globulin 3.5 g/dL (1.7-4.1); Glucose 174 mg/dL (80-110); HEMOLYSIS < 15 (0-50); Potassium 3.9 mmol/L (3.4-5.1); Sodium 139 mmol/L (137-145); Total Protein 8.2 g/dL (6.3-8.2)
[2019-05-04 15:52] LABS: TSH w/ Reflex to FT4 1.96 uIU/mL (0.47-4.68)
== END ==
PROVIDERS: PCP Family Medicine; Visit Provider Family Medicine
DX: E03.9 Hypothyroidism, unspecified (principal); E11.9 Type 2 diabetes mellitus without complications; E78.5 Hyperlipidemia, unspecified; I10 Essential (primary) hypertension
CPT/HCPCS: 36415; 80053; 83036; 84443

== ENCOUNTER 2019-05-25 15:15 | Outpatient (RCR) | payer OTHER, SELFPAY ==
--- NOTE | 2019-05-04 14:45 | PT.OIE ---
Current Diagnoses Unspecified urinary incontinence (05/04/19) Past Medical History (Last Reviewed 04/13/19 @ 16:00 by Price Montero MD) Abnormal Pap smear of cervix (Resolved ~1983) Allergic rhinitis (Chronic) Ankle pain (Chronic ~1992) Anxiety (Acute) Asthma (Chronic ~2004) BPPV (benign paroxysmal positional vertigo) (Chronic) Chickenpox (Resolved ~1961) Chronic back pain (Chronic ~1978) Chronic cough (Chronic ~2004) Colon polyps (Resolved) Depression (Chronic ~1983) Diabetes insipidus (Chronic ~2004) Diabetes mellitus (Chronic ~2004) Diverticular disease (Chronic ~2014) Eczema (Chronic ~1983) Foot pain (Chronic ~1992) GERD (gastroesophageal reflux disease) (Chronic ~1994) Hyperlipidemia (Chronic) Hypertension (Chronic ~1994) Hypothyroidism (Chronic ~1989) Insomnia (Acute 10/23/12) Lumbar back pain with radiculopathy affecting left lower extremity (05/11/14) Lumbar spine pain (Chronic ~1978) Major depressive disorder, single episode, severe without psychotic features (Acute) Overweight (Chronic) Pleurisy (Resolved) PTSD (post-traumatic stress disorder) (Chronic ~1989) Sciatica (Chronic) Seasonal allergies (Chronic ~2004) Shoulder pain (Chronic ~2009) Substance abuse (Resolved ~1971) Vision abnormalities (Chronic) Past Surgical History (Last Reviewed 04/13/19 @ 16:00 by Price Montero MD) Anesthesia (Inactive) History of chest tube placement (Resolved ~1987) History of colonoscopy (Resolved ~2007) History of colonoscopy (Resolved ~2013) History of cone biopsy of cervix (Resolved ~1983) Status post epidural steroid injection (Resolved) Status post laminectomy (07/04/14) Visit Care Team Role Provider Type Marie Prince DO Attending Provider Physician Primary Care Provider Specialty: [facility] Address: [address] [place] [address], [address], [facility] Email: [email or web address] Physical Therapy Initial Evaluation PT-OP-A Visit Information Start: 05/04/19 13:50 Freq: Status: Active Protocol: Document 05/04/19 13:51 [facility] (Rec: 05/04/19 14:05 [facility] [id number]) Out-Patient Physical Therapy Visit Information Visit Information Visit Type Initial Evaluation Visit Start Time 13:45 Visit Stop Time 14:30 Total Visit Minutes 45 Visit Number 1 Evaluation Information Evaluation Date 05/04/19 PT-OP-B Current Condition Start: 05/04/19 13:50 Freq: Status: Active Protocol: Document 05/04/19 13:51 [facility] (Rec: 05/04/19 14:05 [facility] [id number]) Current Condition History of Current Condition Onset Date 2014 Current Complaints stress urinary incontinence History of Current Condition 2014 and 2016 back surgeries laminectomy and discectomy, has a history of vertigo and under times of stress her vertigo is worse. She has taken a few falls due to vertigo. The vertigo started November of 2018. She has fallen approximatley 4 times since then. PT helped with urinary incontinence symptoms prior to PT but following her surgeries she started having symptoms of leakage again. Now she is wearing a depends for protection and changes it every time she voids. She does have sensation that she needs to void and voids approximately 4 xms per day. She will wake up 4 times per night. She does currently have Low back pain around a 2/10. Hx of right bundle branch blockage, heart doesn't beat at a regular time but is taking medication for that. Has 1-2 cups of so tea each moring and then drinks water throughout the day. Usually has a daily bowel movement but at times will have a day inbetween. Treatment Goals Patient/Caregiver Goals Goals are to eliminate urinary incontinence. Current Functional Impairments (Reported) Functional Limitations- Mobility/Gait limited with walking distance due to leakage PT-OP-I Pelvic Floor Start: 05/04/19 13:50 Freq: Status: Active Protocol: Document 05/04/19 13:45 [facility] (Rec: 05/11/19 13:02 [facility] [id number]) Pelvic Floor Assessment Urine Pelvic Floor Surgery No Other Urinary Symptoms urinary stress incontinence Leakage Size Large Leakage Cause Cough,Exercise Other Leakage Causes walking Voiding Frequency 5 Nocturia yes Pads Used In 24 Hours many Urine Pad Type Depends Pelvic Clock Pelvic Clock 12-3 Atrophy Pelvic Clock 3-6 Atrophy Pelvic Clock 6-9 Guarding Pelvic Clock 9-12 Guarding Pelvic Clock Other [place] has a history of left sided sciatic symptoms and the left lateral wall of her levator ani was very guarded and tight. She reports feeling like she always has some discomfort on her left side Prolapse Uterine Prolapse Grade 2 SEMG (uV) Baseline 3.8 Recruitment Pattern Fair Relaxation Poor/Slow Holding Fair Stability of Hold Fair SEMG Stability of Rest Poor/Slow Contraction Ability Voluntary Contraction Weak Voluntary Relaxation Weak Manual Muscle Testing Left 3 Manual Muscle Testing Right 3 Manual Muscle Testing Anterior 1 Manual Muscle Testing Posterior 3 Muscle Endurance (Seconds) 5 PT-OP-M Strength Start: 05/04/19 13:50 Freq: Status: Active Protocol: Document 05/04/19 13:45 [facility] (Rec: 05/11/19 13:02 [facility] [email or web address]) Trunk Strength Trunk Manual Muscle Testing Testing Position Supine Flexion 3 Fair Core Stabilization poor core stabilization with + ASLR test B PT-OP-Q Treatments Start: 05/04/19 13:50 Freq: Status: Active Protocol: Document 05/04/19 13:51 [facility] (Rec: 05/04/19 17:31 [facility] [email or web address]) Therapeutic Exercises Supine Exercises 1 Supine Exercise Name pelvic floor 5 second hold time with 10 second relaxation Reps/Minutes 2 x 10 per day PT-OP-T Assessment and Plan Start: 05/04/19 13:50 Freq: Status: Active Protocol: Document 05/04/19 13:45 [facility] (Rec: 05/11/19 13:02 [facility] [email or web address]) Physical Therapy Assessment Rehab Potential Rehabilitation Potential Excellent Evaluation Complexity Number of Personal Factors/Comorbidities 0 Number of Body Systems Impaired 1-2 Clinical Presentation at Evaluation Stable Impairments Impairments Activity Tolerance,Functional Activities,Strength,Tone Other Impairments urinary leakage with exercise and walking Goals Four Impairment [place] lacks a HEP for pelvic floor strengthening Half-Way Goal (LTG) [place] is independent with her HEP demonstrating good recruitment of her pelvic floor. LTG Duration 8 weeks Three Impairment Urinary stress incontinence Db2 Developer Goal (LTG) [place] reports overall reduction in urinary incontinence and is able to continue her walks without c/o leakage LTG Duration 8 weeks Two Impairment Decreased endurance of the pelvic floor Short Term Goal (STG) [place] is able to sustain a pelvic floor contraction in supine for 10 seconds or greater STG Duration 4 weeks Db2 Developer Goal (LTG) [place] is able to sustain a pelvic floor contraction in standing for 10 seconds LTG Duration 8 weeks One Impairment Decreased strength of the levator ani musculature Db2 Developer Goal (LTG) [place] is able to increase strength from 3/5 MMT to 4/5 MMT or better in the lateral jackson of her levator ani and from 1/5 MMT of her anterior wall to 3/5 MMT or better. LTG Duration 8 weeks Assessment Summary Assessment [place] is 63 year old female who presents to physical therapy today with symptoms of urinary stress incontinence that has worsened in the past 5 years with her lumbar surgeries. She is able to contract all parts of her levator ani however she is weaker in the anterior section of the pubococcygeus and is guarded on the left lateral wall of the levator ani. She has a history of sciatic symptoms on this left side. [place] is guarded with her resting tone at 3.8 uv. She is a good candidate for PT Physical Therapy Plan Frequency and Duration Frequency of Treatment 1x/Week Duration of Treatment 8 Plan of Care Start Date 05/04/19 Plan of Care End Date 06/29/19 Therapeutic Interventions Therapeutic Interventions Home Exercise Program,Manual Therapy,Neuromuscular Re- education,Patient/Caregiver Education,Self-Care/Home Management,Soft Tissue Mobilization,Therapeutic Exercises Next Visit Focus/Plan Next Note Type Treatment Note Next Visit Plan EMG biofeedback for pelvic floor strengthening, endurance training for the pelvic floor
--- NOTE | 2019-05-04 14:47 | PT.OPPOC ---
Physical, Occupational & Speech Therapy At [facility] Current Diagnoses Unspecified urinary incontinence (05/04/19) Visit Care Team Role Provider Type Marie Prince DO Attending Provider Physician Primary Care Provider Specialty: Family Practice Address: [address] [place] [address], [address], [address] Email: [email or web address] Plan Of Care PT-OP-T Assessment and Plan Start: 05/04/19 13:50 Freq: Status: Active Protocol: Document 05/04/19 13:45 [facility] (Rec: 05/11/19 13:02 [facility] [email or web address]) Physical Therapy Assessment Rehab Potential Rehabilitation Potential Excellent Evaluation Complexity Number of Personal Factors/Comorbidities 0 Number of Body Systems Impaired 1-2 Clinical Presentation at Evaluation Stable Impairments Impairments Activity Tolerance,Functional Activities,Strength,Tone Other Impairments urinary leakage with exercise and walking Goals Four Impairment [place] lacks a HEP for pelvic floor strengthening Medical Staff Services Manager Goal (LTG) [place] is independent with her HEP demonstrating good recruitment of her pelvic floor. LTG Duration 8 weeks Three Impairment Urinary stress incontinence Medical Staff Services Manager Goal (LTG) [place] reports overall reduction in urinary incontinence and is able to continue her walks without c/o leakage LTG Duration 8 weeks Two Impairment Decreased endurance of the pelvic floor Short Term Goal (STG) [place] is able to sustain a pelvic floor contraction in supine for 10 seconds or greater STG Duration 4 weeks Halfway Goal (LTG) [place] is able to sustain a pelvic floor contraction in standing for 10 seconds LTG Duration 8 weeks One Impairment Decreased strength of the levator ani musculature Halfway Goal (LTG) [place] is able to increase strength from 3/5 MMT to 4/5 MMT or better in the lateral jackson of her levator ani and from 1/5 MMT of her anterior wall to 3/5 MMT or better. LTG Duration 8 weeks Assessment Summary Assessment [place] is 63 year old female who presents to physical therapy today with symptoms of urinary stress incontinence that has worsened in the past 5 years with her lumbar surgeries. She is able to contract all parts of her levator ani however she is weaker in the anterior section of the pubococcygeus and is guarded on the left lateral wall of the levator ani. She has a history of sciatic symptoms on this left side. [place] is guarded with her resting tone at 3.8 uv. [place] is a good candidate for PT. Physical Therapy Plan Frequency and Duration Frequency of Treatment 1x/Week Duration of Treatment 8 Plan of Care Start Date 05/04/19 Plan of Care End Date 06/29/19 Therapeutic Interventions Therapeutic Interventions Home Exercise Program,Manual Therapy,Neuromuscular Re- education,Patient/Caregiver Education,Self-Care/Home Management,Soft Tissue Mobilization,Therapeutic Exercises Next Visit Focus/Plan Next Note Type Treatment Note Next Visit Plan EMG biofeedback for pelvic floor strengthening, endurance training for the pelvic floor Plan of Care Dates Plan of Care Start Date 05/04/19 Plan of Care End Date 06/29/19 Electronically Signed by: Isabella Koch, PT 05/11/19 9034 Please Sign and Return: I have reviewed this Plan of Care and certify that the skilled therapy services above are required to meet the patient?s needs. Physician Signature Date Printed Name and Credentials Clinical Instructor Signature Printed Name and Credentials
--- NOTE | 2019-05-11 17:02 | PT.OTN ---
Current Diagnoses Unspecified urinary incontinence (05/11/19) Physical Therapy Treatment Note PT-OP-A Visit Information Start: 05/04/19 13:50 Freq: Status: Active Protocol: Document 05/11/19 16:06 [facility] (Rec: 05/11/19 17:02 [facility] [id number]) Out-Patient Physical Therapy Visit Information Visit Information Visit Type Treatment Note PT-OP-B Current Condition Start: 05/04/19 13:50 Freq: Status: Active Protocol: Document 05/04/19 13:51 [facility] (Rec: 05/04/19 14:05 [facility] [id number]) Current Condition History of Current Condition Onset Date 2014 Current Complaints stress urinary incontinence History of Current Condition 2014 and 2016 back surgeries laminectomy and discetomy, has a history of vertigo and under times of stress her vertigo is worse. She has taken a few falls due to vertigo. The vertigo started November of 2018. She has fallen approximately 4 times since then. PT helped with urinary incontinence symptoms prior to PT but following her surgeries she started having symptoms of leakage again. Now she is wearing a depends for protection and changes it every time she voids. She does have sensation that she needs to void and voids approximately 4 xms per day. She will wake up 4 times per night. She does currently have Low back pain around a 2/10. Hx of right bundle branch blockage, heart doesn't beat at a regular time but is taking medication for that. Has 1-2 cups of so tea each morning and then drinks water throughout the day. Usually has a daily bowel movement but at times will have a day inbetween. Treatment Goals Patient/Caregiver Goals Goals are to eliminate urinary incontinence. Current Functional Impairments (Reported) Functional Limitations- Mobility/Gait limited with walking distance due to leakage PT-OP-C Subjective Start: 05/04/19 13:50 Freq: Status: Active Protocol: Document 05/11/19 16:06 [facility] (Rec: 05/11/19 17:02 [facility] [id number]) OP-PT Subjective Patient Comments Patient Comments Pt reports she has been able to feel her pelvic floor in a standing position, able to stop a urge one time. PT-OP-I Pelvic Floor Start: 05/04/19 13:50 Freq: Status: Active Protocol: Document 05/04/19 13:45 [facility] (Rec: 05/11/19 13:02 [facility] [id number]) Pelvic Floor Assessment Urine Pelvic Floor Surgery No Other Urinary Symptoms urinary stress incontinence Leakage Size Large Leakage Cause Cough,Exercise Other Leakage Causes walking Voiding Frequency 5 Nocturia yes Pads Used In 24 Hours many Urine Pad Type Depends Pelvic Clock Pelvic Clock 12-3 Atrophy Pelvic Clock 3-6 Atrophy Pelvic Clock 6-9 Guarding Pelvic Clock 9-12 Guarding Pelvic Clock Other [place] has a history of left sided sciatic symptoms and the left lateral wall of her levator ani was very guarded and tight. She reports feeling like she always has some discomfort on her left side Prolapse Uterine Prolapse Grade 2 SEMG (uV) Baseline 3.8 Recruitment Pattern Fair Relaxation Poor/Slow Holding Fair Stability of Hold Fair SEMG Stability of Rest Poor/Slow Contraction Ability Voluntary Contraction Weak Voluntary Relaxation Weak Manual Muscle Testing Left 3 Manual Muscle Testing Right 3 Manual Muscle Testing Anterior 1 Manual Muscle Testing Posterior 3 Muscle Endurance (Seconds) 5 PT-OP-M Strength Start: 05/04/19 13:50 Freq: Status: Active Protocol: Document 05/04/19 13:45 [facility] (Rec: 05/11/19 13:02 [facility] [id number]) Trunk Strength Trunk Manual Muscle Testing Testing Position Supine Flexion 3 Fair Core Stabilization poor core stabilization with + ASLR test B PT-OP-Q Treatments Start: 05/04/19 13:50 Freq: Status: Active Protocol: Document 05/11/19 16:06 [facility] (Rec: 05/11/19 17:02 [facility] [id number]) Therapeutic Exercises Supine Exercises 5 Supine Exercise Name supine TA stabilization 4 Supine Exercise Name bridges with pelvic floor contraction Comments x 10 reps 3 Supine Exercise Name Roll outs with theraband Reps/Minutes 3 x 10 reps 2 Supine Exercise Name ball squeeze with anterior pelvic floor contraction Comments x 10 reps quick pelvic floor contractions Supine Exercise Name quick pelvic floor contractions Reps/Minutes 2 seconds on 2 seconds off 1 Supine Exercise Name pelvic floor long holds 10 second hold time with 10 second relaxation Reps/Minutes 2 x per day PT-OP-T Assessment and Plan Start: 05/04/19 13:50 Freq: Status: Active Protocol: Document 05/11/19 16:06 [facility] (Rec: 05/11/19 17:02 [facility] [id number]) Physical Therapy Assessment Assessment Summary Assessment good improvement with both average EMG biofeedback and intensity of pelvic floor contraction. Begin working in quadruped next visit with TA stabilization Physical Therapy Plan Next Visit Focus/Plan Next Visit Plan begin working in quadruped with TA stabilization
--- NOTE | 2019-05-25 16:28 | PT.OTN ---
Current Diagnoses Unspecified urinary incontinence (05/25/19) Physical Therapy Treatment Note PT-OP-A Visit Information Start: 05/04/19 13:50 Freq: Status: Active Protocol: Document 05/25/19 15:26 [facility] (Rec: 05/25/19 16:28 [facility] [id number]) Out-Patient Physical Therapy Visit Information Visit Information Visit Type Treatment Note Visit Start Time 15:15 Visit Stop Time 16:00 Total Visit Minutes 45 Visit Number 3 PT-OP-B Current Condition Start: 05/04/19 13:50 Freq: Status: Active Protocol: Document 05/04/19 13:51 [facility] (Rec: 05/04/19 14:05 [facility] [id number]) Current Condition History of Current Condition Onset Date 2014 Current Complaints stress urinary incontinence History of Current Condition 2014 and 2016 back surgeries laminectomy and discetomy, has a history of vertigo and under times of stress her vertigo is worse. She has taken a few falls due to vertigo. The vertigo started November of 2018. She has fallen approximatley 4 times since then. PT helped with urinary incontinence symptoms prior to PT but following her surgeries she started having symptoms of leakage again. Now she is wearing a depends for protection and changes it every time she voids. She does have sensation that she needs to void and voids approximately 4 xms per day. She will wake up 4 times per night. She does currently have Low back pain around a 2/10. Hx of right bundle branch blockage, heart doesn't beat at a regular time but is taking medication for that. Has 1-2 cups of so tea each moring and then drinks water throughout the day. Usually has a daily bowel movement but at times will have a day inbetween. Treatment Goals Patient/Caregiver Goals Goals are to eliminate urinary incontinence. Current Functional Impairments (Reported) Functional Limitations- Mobility/Gait limited with walking distance due to leakage PT-OP-C Subjective Start: 05/04/19 13:50 Freq: Status: Active Protocol: Document 05/25/19 15:26 [facility] (Rec: 05/25/19 16:28 [facility] [id number]) OP-PT Subjective Patient Comments Patient Comments pt reports she has only had a couple of leaks this week. She had a busy week with company and didn't get in all of her exercises. Patient Reported Progress Improving PT-OP-I Pelvic Floor Start: 05/04/19 13:50 Freq: Status: Active Protocol: Document 05/04/19 13:45 [facility] (Rec: 05/11/19 13:02 [facility] [email or web address]) Pelvic Floor Assessment Urine Pelvic Floor Surgery No Other Urinary Symptoms urinary stress incontinence Leakage Size Large Leakage Cause Cough,Exercise Other Leakage Causes walking Voiding Frequency 5 Nocturia yes Pads Used In 24 Hours many Urine Pad Type Depends Pelvic Clock Pelvic Clock 12-3 Atrophy Pelvic Clock 3-6 Atrophy Pelvic Clock 6-9 Guarding Pelvic Clock 9-12 Guarding Pelvic Clock Other [place] has a history of left sided sciatic symptoms and the left lateral wall of her levator ani was very guarded and tight. She reports feeling like she always has some discomfort on her left side Prolapse Uterine Prolapse Grade 2 SEMG (uV) Baseline 3.8 Recruitment Pattern Fair Relaxation Poor/Slow Holding Fair Stability of Hold Fair SEMG Stability of Rest Poor/Slow Contraction Ability Voluntary Contraction Weak Voluntary Relaxation Weak Manual Muscle Testing Left 3 Manual Muscle Testing Right 3 Manual Muscle Testing Anterior 1 Manual Muscle Testing Posterior 3 Muscle Endurance (Seconds) 5 PT-OP-M Strength Start: 05/04/19 13:50 Freq: Status: Active Protocol: Document 05/04/19 13:45 [facility] (Rec: 05/11/19 13:02 [facility] [email or web address]) Trunk Strength Trunk Manual Muscle Testing Testing Position Supine Flexion 3 Fair Core Stabilization poor core stabilization with + ASLR test B PT-OP-Q Treatments Start: 05/04/19 13:50 Freq: Status: Active Protocol: Document 05/25/19 15:26 [facility] (Rec: 05/25/19 16:28 [facility] [id number]) Therapeutic Exercises Supine Exercises templates Supine Exercise Name templates for coordination and eccentric control Equipment Used EMG biofeedback Reps/Minutes x 5 minutes 5 Supine Exercise Name supine TA stabilization 4 Supine Exercise Name bridges with pelvic floor contraction Comments x 10 reps 3 Supine Exercise Name Roll outs with theraband Reps/Minutes 3 x 10 reps 2 Supine Exercise Name ball squeeze with anterior pelvic floor contraction Comments x 10 reps quick pelvic floor contractions Supine Exercise Name quick pelvic floor contractions Reps/Minutes 2 seconds on 2 seconds off 1 Supine Exercise Name pelvic floor long holds 10 second hold time with 10 second relaxation Reps/Minutes 2 x per day PT-OP-T Assessment and Plan Start: 05/04/19 13:50 Freq: Status: Active Protocol: Document 05/25/19 15:26 [facility] (Rec: 05/25/19 16:28 [facility] [id number]) Physical Therapy Assessment Assessment Summary Assessment average on EMG biofeedback went up again by 1 uv, endurance is still the limiting factor with her pelvic floor Physical Therapy Plan Frequency and Duration Frequency of Treatment 1x/Week Duration of Treatment 8 Plan of Care Start Date 05/04/19 Plan of Care End Date 06/29/19 Therapeutic Interventions Therapeutic Interventions Home Exercise Program,Manual Therapy,Neuromuscular Re- education,Patient/Caregiver Education,Self-Care/Home Management,Soft Tissue Mobilization,Therapeutic Exercises Next Visit Focus/Plan Next Note Type Treatment Note Next Visit Plan begin standing pelvic floor recruitment, add in sit to stand with pelvic floor engagement
--- NOTE | 2019-12-13 14:19 | PT.OPDS ---
Current Diagnoses Unspecified urinary incontinence (05/25/19) Visit Care Team Role Provider Type Marie Prince DO Attending Provider Physician Primary Care Provider Specialty: [facility] Address: [address] [place] [address], [address], [place], [address] Email: [email or web address] Visit Number Visit Number 3 Discharge Summary PT-OP-B Current Condition Start: 05/04/19 13:50 Freq: Status: Active Protocol: Document 05/04/19 13:51 [facility] (Rec: 05/04/19 14:05 [facility] [id number]) Current Condition History of Current Condition Onset Date 2014 Current Complaints stress urinary incontinence History of Current Condition 2014 and 2016 back surgeries laminectomy and discetomy, has a history of vertigo and under times of stress her vertigo is worse. She has taken a few falls due to vertigo. The vertigo started November of 2018. She has fallen approximatley 4 times since then. PT helped with urinary incontinence symptoms prior to PT but following her surgeries she started having symptoms of leakage again. Now she is wearing a depends for protection and changes it every time she voids. She does have sensation that she needs to void and voids approximately 4 xms per day. She will wake up 4 times per night. She does currently have Low back pain around a 2/10. Hx of right bundle branch blockage, heart doesn't beat at a regular time but is taking medication for that. Has 1-2 cups of so tea each moring and then drinks water throughout the day. Usually has a daily bowel movement but at times will have a day inbetween. Treatment Goals Patient/Caregiver Goals Goals are to eliminate urinary incontinence. Current Functional Impairments (Reported) Functional Limitations- Mobility/Gait limited with walking distance due to leakage PT-OP-C Subjective Start: 05/04/19 13:50 Freq: Status: Active Protocol: Document 05/25/19 15:26 [facility] (Rec: 05/25/19 16:28 [facility] [id number]) OP-PT Subjective Patient Comments Patient Comments pt reports she has only had a couple of leaks this week. She had a busy week with company and didn't get in all of her exercises. Patient Reported Progress Improving PT-OP-I Pelvic Floor Start: 05/04/19 13:50 Freq: Status: Active Protocol: Document 05/04/19 13:45 [facility] (Rec: 05/11/19 13:02 [facility] [email or web address]) Pelvic Floor Assessment Urine Pelvic Floor Surgery No Other Urinary Symptoms urinary stress incontinence Leakage Size Large Leakage Cause Cough,Exercise Other Leakage Causes walking Voiding Frequency 5 Nocturia yes Pads Used In 24 Hours many Urine Pad Type Depends Pelvic Clock Pelvic Clock 12-3 Atrophy Pelvic Clock 3-6 Atrophy Pelvic Clock 6-9 Guarding Pelvic Clock 9-12 Guarding Pelvic Clock Other [place] has a history of left sided sciatic symptoms and the left lateral wall of her levator ani was very guarded and tight. She reports feeling like she always has some discomfort on her left side Prolapse Uterine Prolapse Grade 2 SEMG (uV) Baseline 3.8 Recruitment Pattern Fair Relaxation Poor/Slow Holding Fair Stability of Hold Fair SEMG Stability of Rest Poor/Slow Contraction Ability Voluntary Contraction Weak Voluntary Relaxation Weak Manual Muscle Testing Left 3 Manual Muscle Testing Right 3 Manual Muscle Testing Anterior 1 Manual Muscle Testing Posterior 3 Muscle Endurance (Seconds) 5 PT-OP-M Strength Start: 05/04/19 13:50 Freq: Status: Active Protocol: Document 05/04/19 13:45 [facility] (Rec: 05/11/19 13:02 [facility] [email or web address]) Trunk Strength Trunk Manual Muscle Testing Testing Position Supine Flexion 3 Fair Core Stabilization poor core stabilization with + ASLR test B PT-OP-T Assessment and Plan Start: 05/04/19 13:50 Freq: Status: Active Protocol: Document 12/13/19 14:18 [facility] (Rec: 12/13/19 14:19 [facility] [email or web address]) Physical Therapy Assessment Assessment Summary Assessment [place] has not been seen since the covid 19 pandemic. She has not wished to return to PT at this time Physical Therapy Plan Discharge Physical Therapy Discharge Reasons No Longer Attending PT Discharge Comments DC PT as patient has not wished to return to PT after the covid 19 pandemic
== END 2019-12-14 10:54 ==
LOC: PHYS 15:15
PROVIDERS: PCP Family Medicine; Visit Provider Family Medicine
DX: R32 Unspecified urinary incontinence (principal)
CPT/HCPCS: 97110; 97161

== ENCOUNTER → 2019-08-27 11:11 | Outpatient (CLI) | payer OTHER, SELFPAY ==
[2019-08-27 13:20] LABS: BUN Creatinine Ratio 22.5 (6-22); Blood Urea Nitrogen 18 mg/dL (7-17); Calcium 10.4 mg/dL (8.4-10.2); Carbon Dioxide 26 mmol/L (22-32); Chloride 103 mmol/L (98-107); Estimated Glomerular Filt Rate > 60.0 mL/min (>60); Glucose 125 mg/dL (80-110); HEMOLYSIS < 15 (0-50); Potassium 4.8 mmol/L (3.4-5.1); Sodium 139 mmol/L (137-145)
[2019-08-27 13:50] LABS: TSH w/ Reflex to FT4 2.03 uIU/mL (0.47-4.68)
== END ==
PROVIDERS: PCP Family Medicine; Referring Provider Family Medicine; Visit Provider Family Medicine
DX: E03.9 Hypothyroidism, unspecified (principal); E11.9 Type 2 diabetes mellitus without complications
CPT/HCPCS: 36415; 80048; 83036; 84443

== ENCOUNTER → 2019-11-20 10:37 | Outpatient (CLI) | payer OTHER, SELFPAY ==
[2019-11-20 12:16] LABS: Hemoglobin A1C% w Est Avg Glu 6.6 % (4.0-6.0)
[2019-11-20 12:28] LABS: BUN Creatinine Ratio 20.3 (6-22); Blood Urea Nitrogen 16 mg/dL (7-17); Carbon Dioxide 26 mmol/L (22-32); Chloride 103 mmol/L (98-107); Estimated Glomerular Filt Rate > 60.0 mL/min (>60); Glucose 145 mg/dL (80-110); HEMOLYSIS < 15 (0-50); Sodium 139 mmol/L (137-145)
[2019-11-21 07:10] LABS: Parathyroid Hormone Int 22 pg/mL (15-65)
== END ==
PROVIDERS: PCP Family Medicine; Referring Provider Family Medicine; Visit Provider Family Medicine
DX: E11.9 Type 2 diabetes mellitus without complications (principal); E83.52 Hypercalcemia; I10 Essential (primary) hypertension
CPT/HCPCS: 36415; 80048; 83036; 83970